=== PATIENT | female | born 1960 | race Caucasian/White ===

== ENCOUNTER 2020-08-07 22:35 | Observation (INO) ==
[2020-08-07] MEDS ORDERED: Ipratropium/Albuterol Neb 3 ML IH ONE (22:47)
[2020-08-07] MEDS ORDERED: Dexamethasone 4 MG/ML VIAL IVP ONE (22:47)
[2020-08-07] MEDS ORDERED: cefTRIAXone 1,000 MG in Water for inj. (sterile) 10 ML IVP ONE (22:51)
[2020-08-07] MEDS ORDERED: Azithromycin 500 MG in D5% in Water 250 ML IVPB ONE (22:51)
[2020-08-07 23:06] LABS: Bacteria,Urine Few per hpf (None-Few); Bilirubin,Urine Negative (Negative); Blood,Urine Moderate (Negative); Clarity,Urine Turbid (Clear); Color,Urine Yellow (Yellow); Glucose,Urine (UA) Normal (Normal); Ketones,Urine Trace mg/dL (Negative); Leukocyte Esterase,Urine Negative (Negative); Mucus,Urine Few per lpf (None-Few); Nitrite,Urine Negative (Negative); Protein,Urine 30 mg/dL (Neg-Trace); RBC,Urine 15-30 per hpf (0-3); Specific Gravity,Urine 1.029 (1.010-1.025); Squamous Epithelial Cell,Urine Moderate per hpf (None-Few); WBC,Urine 0-3 per hpf (0-3)
[2020-08-07 23:21] LABS: Basophils % 0.5 %; Eosinophils % 0.2 %; Hematocrit 46.7 % (35.3-44.9); Hemoglobin 15.5 g/dL (11.5-15.4); Immature Granulocytes % 0.2 % (0-4); Lymphocytes # 1.4 K/mcL (0.6-4.6); Lymphocytes % 32.7 %; Mean Corpuscular HGB Conc 33.2 g/dL (31.6-35.5); Mean Corpuscular Volume 96.5 fL (83.0-100.0); Mean Platelet Volume 10.7 fL (9.4-12.4); Monocytes # 0.5 K/mcL (0.0-1.3); Monocytes % 12.2 %; Neutrophils # 2.4 K/mcL (1.6-8.9); Platelet Count 178 K/mcL (140-400); Red Blood Count 4.84 M/mcL (3.82-4.97); Red Cell Distribution Width 13.6 % (11.5-14.5); Segmented Neutrophils % 54.2 %; White Blood Count 4.4 K/mcL (4.3-11.1)
[2020-08-07 23:22] LABS: VBG HCO3 24 mEq/L (21-27); VBG PCO2 43 mmHg (41-51); VBG PH 7.36 pH Units (7.32-7.42); VBG PO2 45 mmHg (25-50)
[2020-08-07 23:40] LABS: BUN/Creatinine Ratio 16 (6-26); Blood Urea Nitrogen 14 mg/dL (8-23); Calcium 9.2 mg/dL (8.6-10.3); Carbon Dioxide 22 mEq/L (23-29); Chloride 104 mEq/L (98-107); Glucose 97 mg/dL (70-105); Osmolality,Calculated 282 (280-300); Potassium 4.1 mEq/L (3.5-5.1); Sodium 136 mEq/L (136-145); Troponin I < 0.03 ng/mL (< 0.04); eGFR For African Americans > 60 (> 60); eGFR For Non-African Americans > 60 (> 60)
[2020-08-08] MEDS ORDERED: Ondansetron 4 MG/2 ML VIAL IVP ONE (00:05)
[2020-08-08] MEDS ORDERED: Naloxone 0.4 MG/ML INJ IVP PRN (00:57)
[2020-08-08] MEDS ORDERED: Ondansetron ODT 4 MG TAB.RAPDIS SL PRN (00:57)
[2020-08-08 04:50] LABS: Hematocrit 42.3 % (35.3-44.9); Hemoglobin 14.4 g/dL (11.5-15.4); Mean Corpuscular Hemoglobin 32.7 pg (28.0-33.3); Mean Corpuscular Volume 96.1 fL (83.0-100.0); Mean Platelet Volume 11.2 fL (9.4-12.4); Platelet Count 162 K/mcL (140-400); Red Cell Distribution Width 13.4 % (11.5-14.5); White Blood Count 3.2 K/mcL (4.3-11.1)
[2020-08-08 05:07] LABS: BUN/Creatinine Ratio 16 (6-26); Blood Urea Nitrogen 14 mg/dL (8-23); Calcium 8.8 mg/dL (8.6-10.3); Carbon Dioxide 20 mEq/L (23-29); Chloride 105 mEq/L (98-107); Glucose 143 mg/dL (70-105); Osmolality,Calculated 283 (280-300); Potassium 3.8 mEq/L (3.5-5.1); Sodium 135 mEq/L (136-145); eGFR For African Americans > 60 (> 60); eGFR For Non-African Americans > 60 (> 60)
[2020-08-08] MEDS: *HR* Enoxaparin 40 MG/0.4 ML SYRINGE SQ SCH (05:40)
[2020-08-08 06:10] LABS: Creatine Kinase 89 Units/L (30-223); Lactate Dehydrogenase 195 Units/L (140-271)
[2020-08-08 06:35] LABS: Ferritin 88 ng/mL (10-120)
[2020-08-08] MEDS: Aspirin 81 MG TAB.CHEW PO SCH (07:09)
[2020-08-08] MEDS: Tiotropium 18 MCG inhalation IH SCH (07:28)
[2020-08-08] MEDS ORDERED: Furosemide 20 MG/2 ML VIAL IVP ONE (11:30)
[2020-08-08 13:08] LABS: C-Reactive Protein 17 mg/L (Less than 10)
[2020-08-08 13:23] LABS: C-Reactive Protein 17 mg/L (Less than 10)
[2020-08-08] MEDS: Dexamethasone 4 MG/ML VIAL IVP SCH (14:17)
[2020-08-08] MEDS ORDERED: Dexamethasone 4 MG/ML VIAL IVP SCH (21:00)
[2020-08-08] MEDS ORDERED: Azithromycin 250 MG TABLET PO SCH (21:00)
[2020-08-09] MEDS: *HR* Enoxaparin 40 MG/0.4 ML SYRINGE SQ SCH (05:20)
[2020-08-09 07:37] VITALS: BP 102/52
[2020-08-09] MEDS: Dexamethasone 4 MG/ML VIAL IVP SCH (07:50)
[2020-08-09] MEDS: Aspirin 81 MG TAB.CHEW PO SCH (07:50)
[2020-08-09] MEDS: Tiotropium 18 MCG inhalation IH SCH (07:51)
== END 2020-08-09 13:26 | disposition home or self-care (01) ==
LOC: 2NENU 22:35 → EMEROOARM 22:35 → 2NENU 08-08 01:34
PROVIDERS: ADMIT Internal Medicine; ATTEND Internal Medicine